=== PATIENT | female | born 1975 | race Asian ===

== ENCOUNTER 2018-03-08 17:09 | Emergency (ER) | payer MEDICAID ==
[~2018-03-08] VITALS: Ht 152.4 cm; Wt 51.4 kg
[~2018-03-08 17:09] MED LIST: CYCL-1 PO; FAMO40TA59 PO; RANI150T44 PO; SUCR1ORA2 PO; TRAM50TA2 PO; ZOL50T PO
[2018-03-08 17:17] VITALS: BP 112/53
== END 2018-03-08 18:08 | disposition home or self-care (01) ==
LOC: ER 17:09
DX: R68.84 Jaw pain (principal); R20.2 Paresthesia of skin; E78.00 Pure hypercholesterolemia, unspecified; K21.9 Gastro-esophageal reflux disease without esophagitis; F41.9 Anxiety disorder, unspecified; F41.0 Panic disorder [episodic paroxysmal anxiety]
CPT/HCPCS: 99281